=== PATIENT | male | born 1950 | race Caucasian/White ===

== ENCOUNTER 2016-10-26 19:47 | Emergency (ER) | payer OTHER ==
[2016-10-26 20:00] VITALS: RESP 16; TEMP 98.1
--- NOTE | 2016-10-26 21:43 | EDPHY ---
H & P Stated Complaint: RUQ, LUQ pain Time Seen by Provider: 10/26/16 21:35 HPI/ROS: CHIEF COMPLAINT: Abdominal pain. HISTORY OF PRESENT ILLNESS: The patient is a 66-year-old male who presents with abdominal pain that began Wednesday. The pain went away for the most part yesterday. However, today the pain returned and worsened sharply after he ate dinner. He admits constipation for the past few weeks but has no associated symptoms. No recent sickness, fever, chills, chest pain, shortness of breath, palpitations, vomiting, diarrhea, urinary complaints, headache, lightheadedness. He has no pancreatitis or gallbladder history. He does have a history of acid reflux but this feels dissimilar. REVIEW OF SYSTEMS: Aside from elements discussed in the HPI, a comprehensive 10-point review of systems was reviewed and is negative. PAST MEDICAL HISTORY: Hypertension. SOCIAL HISTORY: , nonsmoker, social alcohol use. VITAL SIGNS: Reviewed by me GENERAL: Well-developed, well-nourished, resting comfortably in no respiratory distress. HEENT: Atraumatic. Eyes: No icterus, no injection. Mouth: moist mucous membranes. No erythema or lesions. Neck: supple with no adenopathy. LUNGS: Clear to auscultation bilaterally, no wheezes, rhonchi or rales. CARDIAC: Regular rate and rhythm, no rubs, murmurs or gallops. ABDOMEN: Soft, nondistended, bowel sounds normal. Mild diffuse tenderness. BACK: No CVA tenderness. EXTREMITIES: No trauma. No edema. Range of motion is normal throughout. NEURO: Alert and oriented, grossly nonfocal. SKIN: Warm and dry, no rash. PSYCHIATRIC: Normal mentation, no agitation. Portions of this note were transcribed by a medical records field technician. I personally performed a history, physical exam, medical decision making, and confirmed accuracy of information the transcribed note. Source: Patient Exam Limitations: No limitations - Personal History Current Tetanus/Diphtheria Vaccine: Yes Current Tetanus Diphtheria and Acellular Pertussis (TDAP): Yes - Medical/Surgical History Hx Asthma: No Hx Chronic Respiratory Disease: No Hx Diabetes: No Hx Cardiac Disease: No Hx Renal Disease: No Hx Cirrhosis: No Hx Alcoholism: No Hx HIV/AIDS: No Hx Splenectomy or Spleen Trauma: No Other PMH: HTN, - Social History Smoking Status: Never smoked Constitutional: Initial Vital Signs Temperature (C) 36.7 C 10/26/16 19:57 Heart Rate 70 10/26/16 19:57 Respiratory Rate 16 10/26/16 19:57 Blood Pressure 158/93 H 10/26/16 19:57 O2 Sat (%) 94 10/26/16 19:57 O2 Delivery Mode Room Air Allergies/Adverse Reactions: No Known Allergies Allergy (Unverified 10/26/16 19:57) Home Medications: Medication Instructions Recorded Amoxicillin/Clavulanate Pot 875 mg PO BID #14 tab 10/26/16 [Augmentin 875 MG TAB (*)] Hydrocodone/APAP 5/325 [[place] 1 tab PO Q6H PRN #10 tab 10/26/16 5/325 (RX)] Lisinopril 10/26/16 Ondansetron Odt [Zofran Odt 4 mg 4 mg PO Q6 PRN #8 tab 10/26/16 (RX)] Medical Decision Making - Diagnostics Imaging Results: Impression: 1. Negative for cholelithiasis or secondary findings of cholecystitis. 2. Mild hepatic enlargement without focal hepatic abnormality. 3. See above report for additional findings. Results called and discussed with Deanna Martinez MD on 10/26/2016 at 23:05 Dictated By: Rubin Ramirez MD ED Course/Re-evaluation: 66-year-old male presents with upper left and right quadrant pain. These began Wednesday and returned today. They were worse after dinner. He has no associated symptoms. He has a normal exam. An IV was established and labs ordered. 1L IV saline administered. Lipase elevated at 432. Gallbladder ultrasound ordered. Ultrasound negative for gallstone disease. Discussed various causes for elevated lipase as well as abdominal pain in left lower quadrant and epigastric and right upper quadrant. Patient would prefer not to obtain CT scan for diverticulitis, creatinine elevated. Will dc with instruction regarding diverticulitis, pancreatitis, gastritis. Looks well; comfortable being discharged from ED. Differential Diagnosis: Abdominal pain differential considered include but not limited to diverticulitis , pancreatitis, gastritis, constipation, cholecystitis, irritable bowel disease. - Data Points Laboratory Results: Laboratory Results 10/26/16 20:55 10/26/16 20:55 Medications Given: Discontinued Medications Hydrocodone Bitart/Acetaminophen ([place] 5/325mg Prepack#6) 1 btl TAKEHOME EDNOW ONE Stop: 10/26/16 23:56 Last Admin: 10/26/16 23:55 Dose: 1 btl Sodium Chloride (Ns) 1,000 mls @ 0 mls/hr IV ONCE ONE PRN Reason: Wide Open Stop: 10/26/16 23:23 Last Admin: 10/26/16 23:22 Dose: 1,000 mls Ondansetron HCl (Zofran Odt 4 Mg Prepack#2) 1 btl TAKEHOME EDNOW ONE Stop: 10/26/16 23:56 Last Admin: 10/26/16 23:55 Dose: 1 btl Departure - Departure Disposition: Home, Routine, Self-Care Clinical Impression: Abdominal pain, Elevated lipase, Possible diverticulitis Condition: Fair Instructions: Hydrocodone/Acetaminophen (By mouth), Ondansetron (By mouth), Pancreatitis (ED), Diverticulitis (ED), Abdominal Pain (ED) Additional Instructions: 1. On your blood work, your lipase is slightly elevated. There is no signs of gallstones. This elevation in your lipase is may be the cause of your upper abdominal discomfort. For your abdominal pain and elevated lipase, I suggested you start with a bland diet and advance as tolerated. This means start with clear liquids such as water, Gatorade, juice, flat non- caffeinated soda. If you tolerate clear liquids, then you may add bland foods such as bananas, rice, or toast. If you do not have any worsening of your symptoms, you may begin to resume a regular diet. 2. You may take Zofran if needed for nausea and hydrocodone if needed for severe abdominal pain. 3. You been given a prescription for Augmentin. This will be treatment for diverticulitis. We did not CT scan your abdomen because of your elevated kidney functions. If you feel like you are developing worsening lower abdominal discomfort, please begin taking the Augmentin. You may return to the emergency department any time for re-evaluation and to consider a CT scan. 4. Please follow up with your primary care physician, Dr. Clark, at [facility] within the week. Referrals: JOVANA HANKS [Other] - As per Instructions Prescriptions: Amoxicillin/Clavulanate Pot [Augmentin 875 MG TAB (*)] 875 mg PO BID #14 tab Hydrocodone/APAP 5/325 [[place] 5/325 (RX)] 1 tab PO Q6H PRN #10 tab PRN Reason: Pain Ondansetron Odt [Zofran Odt 4 mg (RX)] 4 mg PO Q6 PRN #8 tab PRN Reason: Nausea Report Scribed for: Deanna Martinez Report Scribed by: Chico Amador Date of Report: 10/26/16 Time of Report: 22:12
[2016-10-26 21:47] LABS: % IMMATURE GRANULYOCYTES 0.2 % (0.0-1.1); ABSOLUTE IMMATURE GRANULOCYTES 0.01 10^3/uL (0.00-0.10); ADD DIFF? NO; ADD MORPH? NO; ADD SCAN? NO; ATYPICAL LYMPHOCYTE FLAG 0 (0-99); FRAGMENT RBC FLAG 0 (0-99); HEMATOCRIT 43.3 % (40.0-51.0); HEMOGLOBIN 14.4 g/dL (13.7-17.5); LEFT SHIFT FLG 0 (0-99); LIPEMIA HEMOLYSIS FLAG 80 (0-99); MEAN CELL HEMOGLOBIN 32.4 pg (27.9-34.1); MEAN CELL HEMOGLOBIN CONCENTR. 33.3 g/dL (32.4-36.7); MEAN CELL VOLUME 97.3 fL (81.5-99.8); MEAN PLATELET VOLUME 10.9 fL (8.7-11.7); PLATELET CLUMPS FLAG 0 (0-99); PLATELET COUNT 179 10^3/uL (150-400); RED BLOOD CELL COUNT 4.45 10^6/uL (4.40-6.38); RED CELL DISTRIBUTION WIDTH 12.5 % (11.5-15.2)
[2016-10-26 21:52] LABS: ALANINE AMINOTRANSFERASE 31 IU/L (21-72); ALKALINE PHOSPHATASE 60 IU/L (38-126); ANION GAP 11 mEq/L (8-16); ASPARTATE AMINOTRANSFERASE 35 IU/L (17-59); BILIRUBIN,TOTAL 0.5 mg/dL (0.1-1.4); BILIRUBIN-CONJUGATED 0.4 mg/dL (0.0-0.5); BILIRUBIN-UNCONJUGATED 0.1 mg/dL (0.0-1.1); CALCIUM 9.2 mg/dL (8.5-10.4); CARBON DIOXIDE 26 mEq/l (22-31); CHLORIDE 105 mEq/L (97-110); CREATININE 1.5 mg/dL (0.7-1.3); GLOMERULAR FILTRATION RATE 47; GLUCOSE 88 mg/dL (70-100); POTASSIUM 3.9 mEq/L (3.5-5.2); SODIUM 142 mEq/L (134-144); TOTAL PROTEIN 6.4 g/dL (6.3-8.2)
[2016-10-26] MEDS ORDERED: NS 1,000 ML IV ONE (23:22)
[2016-10-26] MEDS ORDERED: HYDROCOD/APAP 5/325 PREPACK#6 BTL TAKEHOME ONE ×2 (23:50→23:55)
[2016-10-26] MEDS ORDERED: ONDANSETRON 4MG PREPACK#2 BTL TAKEHOME ONE ×2 (23:51→23:55)
[2016-10-27 00:02] VITALS: BP 138/80; PULSE 75; O2SAT 96
== END 2016-10-26 23:58 | disposition home or self-care (01) ==
DX: R10.84 Generalized abdominal pain (principal); R74.8 Abnormal levels of other serum enzymes; I10 Essential (primary) hypertension

== ENCOUNTER 2016-12-04 14:03 | Inpatient (IN) | payer OTHER ==
[2016-12-04] MEDS ORDERED: NS 1,000 ML IV ONE ×2 (14:43→16:37)
--- NOTE | 2016-12-04 14:54 | EDPHY ---
H & P Stated Complaint: unexplained weight loss, headache nausea, increased weakness Time Seen by Provider: 12/04/16 14:17 HPI/ROS: CHIEF COMPLAINT: weight loss, fatigue HISTORY OF PRESENT ILLNESS: 66-year-old male presents emergency department complaining of increasing fatigue and weight loss over the last 5 weeks. Patient was seen 5 weeks ago in the emergency department for abdominal pain. He had several weeks of constipation prior to that visit. Patient reports over the last 5 weeks he has been able to control his abdominal pain with Zantac, aspirin and Tums and this is actually improving. Patient reports last week he tried to go on his normal mountain bike ride and he was too fatigued to continue , the next day he went on his normal run and had to stop and walk due to fatigue. His reports he is sleeping more than usual. Patient reports a decreased appetite, nausea. He states he has been seen at [facility] 3 times over the last 5 weeks for abnormal kidney function tests though last week he reports it was normal. Patient reports a 20 lb weight loss in the last 5 weeks. He denies diarrhea. Reports he is urinating a normal amount without difficulty. He denies chest pain or shortness of breath. REVIEW OF SYSTEMS: A comprehensive 10 point review of systems is otherwise negative aside from elements mentioned in the history of present illness. Source: Patient Exam Limitations: No limitations - Personal History Current Tetanus Diphtheria and Acellular Pertussis (TDAP): Yes - Medical/Surgical History Hx Asthma: No Hx Chronic Respiratory Disease: No Hx Diabetes: No Hx Cardiac Disease: No Hx Renal Disease: No Hx Cirrhosis: No Hx Alcoholism: No Hx HIV/AIDS: No Hx Splenectomy or Spleen Trauma: No Other PMH: HTN, - Social History Smoking Status: Never smoked Constitutional: Initial Vital Signs Temperature (C) 37 C 12/04/16 14:08 Heart Rate 99 12/04/16 14:08 Respiratory Rate 16 12/04/16 14:08 Blood Pressure 155/103 H 12/04/16 14:08 O2 Sat (%) 92 12/04/16 14:08 O2 Delivery Mode Room Air Allergies/Adverse Reactions: No Known Allergies Allergy (Unverified 10/26/16 19:57) Home Medications: Medication Instructions Recorded Lisinopril [Zestril 20 mg (*)] 20 mg PO DAILY 10/26/16 Acetaminophen/ASA/Caffeine 1 each PO Q4-6PRN PRN 12/04/16 [Excedrin Tablet (*)] Calcium Carbonate [Tums 500MG (*)] 500 - 1,000 mg PO QID PRN 12/04/16 Herbals/Supplements -Info Only 1 ea PO DAILY 12/04/16 Ranitidine HCl [Zantac 75] 75 mg PO QID PRN 12/04/16 Medical Decision Making - Diagnostics EKG Interpretation: EKG shows normal sinus rhythm, rate 77, normal axis, good R-wave progression, no ST or T-wave abnormality Imaging Results: Imaging Impressions Abdomen/Pelvis CT 12/04/16 15:30 Impression: 1. No intra-abdominal mass, lymphadenopathy or localized inflammatory process. 2. Normal noncontrast pancreas. No mass or evidence of acute or chronic pancreatitis. 3. Minimal sigmoid diverticulosis. No diverticulitis. 4. Bilateral nephrolithiasis. No hydronephrosis or ureteral calculi. Findings discussed with Emergency Department Bijal Garg NP on December 04, 2016 at 1622 hours. Attention: This CT examination is specifically designed to evaluate patients who are clinically suspected of having acute obstructive uropathy. This examination does not use radiographic contrast, and as such, provides only a limited evaluation of the abdomen, pelvis and retroperitoneum. If there is further clinical suspicion for pathological conditions other than obstructive uropathy, a complete CT evaluation of the abdomen and pelvis utilizing intravenous, oral, and rectal contrast should be considered. Chest CT 12/04/16 15:30 Impression: 1. No evidence of malignancy. 2. Clear lungs with minimal airways disease. No underlying emphysema or pulmonary fibrosis. 3. Mild old T6 compression fracture. 4. Three-vessel calcified coronary plaque. Findings discussed with Emergency Department Bijal Garg NP on December 04, 2016 at 1622 hours. ED Course/Re-evaluation: IV established, CBC, chemistry panel, lipase, LFTs and urinalysis ordered. I- STAT shows an elevated creatinine at 4.4, normal potassium. CT abdomen pelvis with IV contrast has been canceled. Patient urinated clear yellow urine, 100 mL , postvoid residual bladder scan showed 150 mL. Patient with an unremarkable CBC, troponin and LFTs are unremarkable, calcium is 14.6. Patient has been taking 4 tums 3 to 4 times a day. 2nd L of normal saline has been hung. CT chest abdomen pelvis is unremarkable. Patient with a normal EKG. Patient will be admitted to Hospital Medicine for further workup and treatment for his elevated creatinine. Patient is aware and comfortable with this plan. is at bedside. I have spoken with Dr. Rachael Miner. - Data Points Laboratory Results: Laboratory Results 12/04/16 14:46 12/04/16 14:46 12/04/16 12/04/16 12/04/16 14:52 14:47 14:46 WBC RBC Hgb POC Hgb 17.3 gm/dL gm/dL (13.7-17.5) Hct POC Hct 51 % % (40-51) MCV MCH MCHC RDW Plt Count MPV Neut % (Auto) Lymph % (Auto) [place] % (Auto) Eos % (Auto) Baso % (Auto) Nucleat RBC Rel Count Absolute Neuts (auto) Absolute Lymphs (auto) Absolute Monos (auto) Absolute Eos (auto) Absolute Basos (auto) Absolute Nucleated RBC Immature Gran % Immature Gran # POC Sodium 141 mEq/L mEq/L (134-144) Sodium POC Potassium 3.6 mEq/L mEq/L (3.3-5.0) Potassium POC Chloride 98 mEq/L mEq/L (97-110) Chloride Carbon Dioxide Anion Gap POC BUN 34 mg/dL H mg/dL (7-23) BUN Creatinine POC Creatinine 4.4 mg/dL H mg/dL (0.7-1.3) Estimated GFR Glucose POC Glucose 124 mg/dL H mg/dL (70-100) Calcium Phosphorus Total Bilirubin Conjugated Bilirubin Unconjugated Bilirubin AST ALT Alkaline Phosphatase Troponin I Total Protein Albumin Lipase PTH Intact Pending Specimen Hemolysis Urine Color YELLOW Urine Appearance MODERATELY TURBID Urine pH 7.0 (5.0-7.5) Ur Specific [place] 1.009 (1.002-1.030) Urine Protein NEGATIVE (NEGATIVE) Urine Ketones NEGATIVE (NEGATIVE) Urine Blood NEGATIVE (NEGATIVE) Urine Nitrate NEGATIVE (NEGATIVE) Urine Bilirubin NEGATIVE (NEGATIVE) Urine Urobilinogen NEGATIVE EU EU (0.2-1.0) Ur Leukocyte Esterase NEGATIVE (NEGATIVE) Urine Glucose NEGATIVE (NEGATIVE) 12/04/16 12/04/16 14:46 14:46 WBC 8.17 10^3/uL 10^3/uL (3.80-9.50) RBC 5.37 10^6/uL 10^6/uL (4.40-6.38) Hgb 17.5 g/dL g/dL (13.7-17.5) POC Hgb Hct 49.8 % % (40.0-51.0) POC Hct MCV 92.7 fL fL (81.5-99.8) MCH 32.6 pg pg (27.9-34.1) MCHC 35.1 g/dL g/dL (32.4-36.7) RDW 12.2 % % (11.5-15.2) Plt Count 197 10^3/uL 10^3/uL (150-400) MPV 10.3 fL fL (8.7-11.7) Neut % (Auto) 76.1 % H % (39.3-74.2) Lymph % (Auto) 13.7 % L % (15.0-45.0) Morrill % (Auto) 8.1 % % (4.5-13.0) Eos % (Auto) 1.0 % % (0.6-7.6) Baso % (Auto) 0.7 % % (0.3-1.7) Nucleat RBC Rel Count 0.0 % % (0.0-0.2) Absolute Neuts (auto) 6.22 10^3/uL 10^3/uL (1.70-6.50) Absolute Lymphs (auto) 1.12 10^3/uL 10^3/uL (1.00-3.00) Absolute Monos (auto) 0.66 10^3/uL 10^3/uL (0.30-0.80) Absolute Eos (auto) 0.08 10^3/uL 10^3/uL (0.03-0.40) Absolute Basos (auto) 0.06 10^3/uL 10^3/uL (0.02-0.10) Absolute Nucleated RBC 0.00 10^3/uL 10^3/uL (0-0.01) Immature Gran % 0.4 % % (0.0-1.1) Immature Gran # 0.03 10^3/uL 10^3/uL (0.00-0.10) POC Sodium Sodium 140 mEq/L mEq/L (134-144) POC Potassium Potassium 4.0 mEq/L mEq/L (3.5-5.2) POC Chloride Chloride 97 mEq/L mEq/L (97-110) Carbon Dioxide 29 mEq/l mEq/l (22-31) Anion Gap 14 mEq/L mEq/L (8-16) POC BUN BUN 36 mg/dL H mg/dL (7-23) Creatinine 4.5 mg/dL H mg/dL (0.7-1.3) POC Creatinine Estimated GFR 13 Glucose 119 mg/dL H mg/dL (70-100) POC Glucose Calcium 14.8 mg/dL H* mg/dL (8.5-10.4) Phosphorus 4.1 mg/dL mg/dL (2.5-4.5) Total Bilirubin 0.8 mg/dL mg/dL (0.1-1.4) Conjugated Bilirubin 0.4 mg/dL mg/dL (0.0-0.5) Unconjugated Bilirubin 0.4 mg/dL mg/dL (0.0-1.1) AST 25 IU/L IU/L (17-59) ALT 20 IU/L L IU/L (21-72) Alkaline Phosphatase 69 IU/L IU/L (38-126) Troponin I < 0.012 ng/mL ng/mL (0-0.034) Total Protein 7.5 g/dL g/dL (6.3-8.2) Albumin 4.7 g/dL g/dL (3.5-5.0) Lipase 391.0 IU/L H IU/L (23-300) PTH Intact Specimen Hemolysis Urine Color Urine Appearance Urine pH Ur Specific [place] Urine Protein Urine Ketones Urine Blood Urine Nitrate Urine Bilirubin Urine Urobilinogen Ur Leukocyte Esterase Urine Glucose Medications Given: Discontinued Medications Sodium Chloride (Ns) 1,000 mls @ 0 mls/hr IV ONCE ONE PRN Reason: Wide Open Stop: 12/04/16 14:44 Last Admin: 12/04/16 15:07 Dose: 1,000 mls Sodium Chloride (Ns) 1,000 mls @ 0 mls/hr IV ONCE ONE PRN Reason: Wide Open Stop: 12/04/16 16:38 Last Admin: 12/04/16 16:48 Dose: 1,000 mls Point of Care Test Results: 12/04/16 14:47 POC Sodium 141 POC Potassium 3.6 POC Chloride 98 POC BUN 34 H POC Creatinine 4.4 H POC Glucose 124 H Departure - Departure Disposition: [facility] Clinical Impression: Elevated serum creatinine Fatigue Qualifiers: Fatigue type: unspecified Qualified Code(s): R53.83 - Other fatigue Condition: Fair
[2016-12-04 15:01] LABS: HEMATOCRIT 49.8 % (40.0-51.0); HEMOGLOBIN 17.5 g/dL (13.7-17.5); MEAN CELL HEMOGLOBIN 32.6 pg (27.9-34.1); MEAN CELL HEMOGLOBIN CONCENTR. 35.1 g/dL (32.4-36.7); MEAN CELL VOLUME 92.7 fL (81.5-99.8); RED BLOOD CELL COUNT 5.37 10^6/uL (4.40-6.38); RED CELL DISTRIBUTION WIDTH 12.2 % (11.5-15.2)
[2016-12-04 15:02] LABS: % IMMATURE GRANULYOCYTES 0.4 % (0.0-1.1); ABSOLUTE IMMATURE GRANULOCYTES 0.03 10^3/uL (0.00-0.10); ADD DIFF? NO; ADD MORPH? NO; ADD SCAN? NO; ATYPICAL LYMPHOCYTE FLAG 0 (0-99); FRAGMENT RBC FLAG 0 (0-99); LEFT SHIFT FLG 0 (0-99); LIPEMIA HEMOLYSIS FLAG 90 (0-99); MEAN PLATELET VOLUME 10.3 fL (8.7-11.7); PLATELET CLUMPS FLAG 20 (0-99); PLATELET COUNT 197 10^3/uL (150-400)
[2016-12-04 15:21] LABS: COLOR YELLOW; LEUKOCYTE ESTERASE,URINE NEGATIVE (NEGATIVE); NITRITE,URINE NEGATIVE (NEGATIVE)
--- NOTE | 2016-12-04 15:26 | CPEKG ---
Heart Rate: 77 RR Interval: 779 P-R Interval: 172 QRSD Interval: 78 QT Interval: 368 QTC Interval: 417 P [place]: 58 QRS [place]: 12 T Wave [place]: 46 EKG Severity - NORMAL ECG - EKG Impression: SINUS RHYTHM Electronically Signed By: Nelson Perez 05-Dec-2016 07:35:04
[2016-12-04 15:29] LABS: ALANINE AMINOTRANSFERASE 20 IU/L (21-72); ALBUMIN 4.7 g/dL (3.5-5.0); ALKALINE PHOSPHATASE 69 IU/L (38-126); ANION GAP 14 mEq/L (8-16); ASPARTATE AMINOTRANSFERASE 25 IU/L (17-59); BILIRUBIN,TOTAL 0.8 mg/dL (0.1-1.4); BILIRUBIN-CONJUGATED 0.4 mg/dL (0.0-0.5); BILIRUBIN-UNCONJUGATED 0.4 mg/dL (0.0-1.1); CARBON DIOXIDE 29 mEq/l (22-31); CHLORIDE 97 mEq/L (97-110); CREATININE 4.5 mg/dL (0.7-1.3); GLOMERULAR FILTRATION RATE 13; GLUCOSE 119 mg/dL (70-100); SODIUM 140 mEq/L (134-144); TOTAL PROTEIN 7.5 g/dL (6.3-8.2)
[2016-12-04 15:39] LABS: TROPONIN I < 0.012 ng/mL (0-0.034)
[2016-12-04] MEDS ORDERED: ONDANSETRON 4 MG/2 ML VIAL IVP PRN (18:00)
[2016-12-04] MEDS ORDERED: ONDANSETRON DISINTEGRATING 4 MG TAB PO PRN (18:00)
[2016-12-04] MEDS ORDERED: ACETAMINOPHEN 325 MG TAB PO PRN (18:00)
[2016-12-04 18:11] LABS: VITAMIN D 25-HYDROXY TOTAL 40.8 ng/mL (30-100)
[2016-12-04 21:35] LABS: CALCIUM 14.8 mg/dL (8.5-10.4)
[2016-12-04] MEDS: amLODIPine BESYLATE 5 MG TAB PO SCH (22:11)
--- NOTE | 2016-12-04 22:23 | GHP ---
[f rep st] HISTORY AND PHYSICAL DATE OF ADMISSION: 12/04/2016 CHIEF COMPLAINT: Weakness, nausea, weight loss. HISTORY OF PRESENT ILLNESS: This is a 66-year-old male, who really does not have a lot in the way o f past chronic medical problems. A couple months ago he was diagnosed with acute pancreatitis and h ad epigastric pain at that time. Also at that time, his kidney function was off. He followed up [facility] about a couple weeks ago. He had a normal creatinine. Over the last several wee ks, however, he has been complaining of fatigue as well as about a 12-pound weight loss. He has had some nausea, decreased p.o. intake, some vague abdominal discomfort as well. No bone pain. No con stipation. He does complain of headache. REVIEW OF SYSTEMS: A 10-point review of systems obtained. Other than stated above is negative. PAST MEDICAL HISTORY: Hypertension. MEDICATIONS: Lisinopril, ranitidine. He also takes 4 Tums 4 times a day. SOCIAL HISTORY: No smoking or alcohol. 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 FAMILY HISTORY: No multiple myeloma. PHYSICAL EXAM: VITAL SIGNS: Afebrile. Blood pressure 155/103, heart rate 99, oxygen saturation is 92% on room air. GENERAL: The patient is well developed, in no apparent distress. HEENT: Nonict nicholas sclerae. Extraocular muscles are intact. NECK: Supple. No thyromegaly. LUNGS: Good effort . Clear to auscultation bilaterally. CARDIOVASCULAR: Regular rate and rhythm. No murmurs or gall ops. ABDOMEN: Positive bowel sounds. Soft, nontender, nondistended. No hepatosplenomegaly. EXTR EMITIES: No clubbing, cyanosis, or edema. SKIN: Without rash, dry, intact. NEUROLOGIC: Alert an d oriented x3. Moving all 4 extremities equally. PSYCH: Normal mood and affect. LABS: CBC is normal. Chemistry does show a creatinine of 4.5 and a calcium of 14.8. Liver functio n tests are normal. Troponin is negative. Lipase slightly elevated at 391. PTH is low at 7.5. UA is negative with no proteinuria. CT scan of the chest, abdomen, and pelvis does not show any bony abnormalities nor evidence of malig dianna. It does show calcified coronary plaques. There is also bilateral nephrolithiasis. ASSESSMENT: This is a 66-year-old male presenting with hypercalcemia, most likely related to Rebecca barnes. PLAN: 1. Hypercalcemia. His low PTH is consistent with either ingestion or malignancy. Thankfully, he d oes not have any obvious malignancies in his CT scan of his chest, abdomen, and pelvis. There are n o bony abnormalities or destruction to suggest metastatic disease or myeloma. He is taking signific ant amounts of calcium and states that he increased his calcium intake right about the time that he started having symptoms. He is actually taking calcium because of cramping that he gets with excess daren exercise. At this point, I am going to hydrate him and follow his calcium tomorrow. I have sen t off an SPEP, UPEP to rule out myeloma, although I think this is probably less likely of an etiolog y. His PSA is also normal. 2. Acute renal failure. It is reassuring that several weeks ago his creatinine was normal. He ortega s not have any anemia. I think this is probably acute due to dehydration from hypercalcemia and pos sibly RONALD inhibitor. I am going to hold the RONALD inhibitor, give IV fluids, continue to monitor. Hi s urine is also completely bland. 3. Hypertension. His blood pressure is a little on the high side. Will add a little bit of Norvas c since we are stopping the RONALD inhibitor. /[id number]/MODL
[2016-12-05] MEDS: NS 1,000 ML IV SCH ×4 (01:02→21:31)
[2016-12-05 04:33] LABS: IONIZED CALCIUM 1.48 MMOL/L (1.12-1.30)
[2016-12-05 04:51] LABS: ANION GAP 10 mEq/L (8-16); CALCIUM 11.5 mg/dL (8.5-10.4); CARBON DIOXIDE 27 mEq/l (22-31); CHLORIDE 107 mEq/L (97-110); CREATININE 4.3 mg/dL (0.7-1.3); GLOMERULAR FILTRATION RATE 14; GLUCOSE 89 mg/dL (70-100); POTASSIUM 4.1 mEq/L (3.5-5.2); SODIUM 144 mEq/L (134-144)
[2016-12-05] MEDS: amLODIPine BESYLATE 5 MG TAB PO SCH (08:24)
[2016-12-05] MEDS ORDERED: FUROSEMIDE 20 MG/2 ML VIAL IVP ONE (11:46)
--- NOTE | 2016-12-05 11:52 | HOSPPROG ---
Hospitalist Progress Note Assessment/Plan: 66 y/o male new to my care 12/05 presenting with #hypercalcemia (suspect iatrogenic from calcium ingestion) #NAIDA secondary to above #subacute abdominal pain in the setting of recently diagnosed pancreatitis of unclear etiology with significant weight loss Plan: -cont IV normal saline -lasix 20mg ivp x1 -agree with holding jesus -I discussed the case with Dr. Padron who will see the patient later today in consultation -SPEP pending -GI consult to eval need for EGD to eval for ulcer as a cause of his abd pain/ weight loss/pancreatitis dispo continue inpatient care Subjective: overall feeling better today with improving appetite. good urine output. endorses a 4 week Objective: Vital Signs Temp Pulse Resp BP Pulse Ox 36.4 C 55 L 16 145/92 H 96 12/05/16 08:03 12/05/16 08:03 12/05/16 08:03 12/05/16 08:03 12/05/16 08:03 Laboratory Results 12/05/16 04:24 12/04/16 12/05/16 12/06/16 05:59 05:59 05:59 Intake Total 3950 Output Total 1475 Balance 2475 - Physical Exam Constitutional: no apparent distress, appears nourished, not in pain Cardiovascular: regular rate and rhythym, no murmur, rub, or gallop, No JVD, No edema Respiratory: no respiratory distress, no rales or rhonchi, clear to auscultation Gastrointestinal: normoactive bowel sounds, soft, non-tender abdomen, no palpable masses, No guarding, No rebound Genitourinary: no bladder fullness, no bladder tenderness, no renal bruits Neurologic: AAOx3, sensation intact bilaterally Psychiatric: interacting appropriately, not anxious, not encephalopathic, thought process linear ICD10 Worksheet Patient Problems: Problems Problem Status Onset Abdominal pain Acute Elevated lipase Acute Elevated serum creatinine Acute Fatigue Acute
--- NOTE | 2016-12-05 14:15 | GCON ---
[f rep st] CONSULTATION GASTROENTEROLOGY CONSULTATION DATE OF CONSULTATION: 12/05/2016 CHIEF COMPLAINT: Abdominal pain. HISTORY OF PRESENT ILLNESS: I am asked to see this patient in consultation by Dr. Chi for a chief complaint of abdominal pain. As you know, he is a pleasant 66-year-old, who was admitted about 5 w eeks ago with pancreatitis. Ultrasound was normal without gallstones and he responded to conservati ve measures. The cause of his pancreatitis was not clear. He has been having issues with epigastri c pain and has been using high doses of TUMS. He has been feeling progressively weak with nausea an d weight loss. Came to the emergency room. Found to have acute renal failure with a high calcium a t 14.8. This is thought to be from his excessive TUMS use. The patient has never had a known histo ry of peptic ulcer disease. He does take Excedrin with aspirin at least once a day, sometimes sever al times a day. He has had no vomiting, no hematemesis, no melena or blood in his stools. He has b een somewhat constipated recently since his pancreatitis he does get some GERD symptoms maybe once a day, but no dysphagia. He was referred for a colonoscopy last year, but did not follow through. [facility] has never had a screening colonoscopy. No known family history for colon cancer or colon polyps. CT scan this admission showed no pancreatic lesions, no active pancreatitis. ALLERGIES: No known allergies. MEDICINES: Medicines on admission were herbal supplements, high-dose TUMS, ranitidine, Excedrin wit h aspirin, and lisinopril. PAST MEDICAL HISTORY: Pancreatitis in October 2016 of unclear cause, diverticulosis on CT scan, an el evated calcium this admission, acute renal failure this admission. FAMILY HISTORY: Notable for ulcers in his father but he denies a family history of colon cancer or colon polyps. SOCIAL HISTORY: Denies alcohol use. REVIEW OF SYSTEMS: A review of 10 systems: I have performed a complete review of systems which is negative, except for pertinent positives and negatives noted in the HPI. PHYSICAL EXAM: VITAL SIGNS: Afebrile at 36.3, blood pressure 173/98, pulse 64. CONSTITUTIONAL: A lert and oriented. HEENT: Eyes: No scleral icterus. Mouth: No oral lesions. CARDIAC: Regular rate and rhythm. CHEST: Clear to auscultation bilaterally. ABDOMEN: Slightly obese, soft, nonten ulises, except for deep palpation in the periumbilical area, but no rebound. NEUROLOGIC: Nonfocal. S KIN: No obvious rashes. LABORATORY DATA: BUN and creatinine are 30 and 4.5, which is new for him. Calcium is elevated at 1 4.8. LFTs are normal. White count is 8 with hematocrit of 49.8, platelets 197. CT scan of the chest, abdomen and pelvis does not show any bony abnormalities. No evidence of malig dianna. It does show calcified coronary plaques. Pancreas shows no pancreatitis or lesions. ASSESSMENT: 1. Patient with abdominal pain in the epigastric/periumbilical area. The patient has history of pa ncreatitis about 5 weeks ago which has clinically resolved and no evidence of active pancreatitis on CT scan. No mass lesions in the pancreas seen. However, the CT was done noncontrast due to his re nal failure. 2. High calcium. This is presumably from his TUMS intake and patient is due for surveillance colon oscopy. Concern for possible peptic ulcer disease as a cause of epigastric pain could have been also a cause for his recent pancreatitis. I think it is reasonable to do an upper endoscopy. I discussed this with the patient during consultation. I also recommended that he have a colonoscopy, as he has santiagoe r had a screening exam, and patient agrees to proceed with both. However, he does not feel up to do ing the prep today and would like to wait at least today and may consider proceeding with prep tomor row. PLAN: Recommend an upper and lower endoscopy for evaluation. However, due to his renal failure and clinical status, will wait until he is overall improved, but could do this admission or have him co me back as an outpatient. We will re-discuss with the patient tomorrow. Thanks for this consult. /[id number]/MODL
[2016-12-06] MEDS: NS 1,000 ML IV SCH ×2 (02:22→12:51)
[2016-12-06 05:44] LABS: ANION GAP 7 mEq/L (8-16); CALCIUM 9.5 mg/dL (8.5-10.4); CARBON DIOXIDE 22 mEq/l (22-31); CHLORIDE 111 mEq/L (97-110); CREATININE 3.2 mg/dL (0.7-1.3); GLOMERULAR FILTRATION RATE 19; GLUCOSE 85 mg/dL (70-100); SODIUM 140 mEq/L (134-144)
[2016-12-06] MEDS: amLODIPine BESYLATE 5 MG TAB PO SCH (09:05)
[2016-12-06] MEDS: ACETAMINOPHEN/ASA/CAFFEINE 1 EACH TAB PO PRN ×2 (09:34→13:29)
--- NOTE | 2016-12-06 10:28 | HOSPPROG ---
Hospitalist Progress Note Assessment/Plan: 66 y/o male new to my care 12/05 presenting with #hypercalcemia (suspect iatrogenic from calcium ingestion) improving #NAIDA secondary to above (improving) #subacute abdominal pain in the setting of recently diagnosed pancreatitis of unclear etiology with significant weight loss Plan: -cont IV normal saline -agree with holding jesus -Dr. Hudson see later today -SPEP pending/daily labs -GI consult to eval need for EGD was reviewed and appreciated dispo continue inpatient care Subjective: overall feeling better today. good urine output. improved abd pain , but only eating clears Objective: Vital Signs Temp Pulse Resp BP Pulse Ox 36.8 C 64 16 153/88 H 94 12/06/16 08:00 12/06/16 08:00 12/06/16 08:00 12/06/16 08:00 12/06/16 08:00 Laboratory Results 12/06/16 04:59 12/05/16 12/06/16 12/07/16 05:59 05:59 05:59 Intake Total 3950 4460 Output Total 1475 5825 1100 Balance 2115 -0895 -1100 - Physical Exam Constitutional: no apparent distress, appears nourished, not in pain Cardiovascular: regular rate and rhythym, no murmur, rub, or gallop Respiratory: no respiratory distress, no rales or rhonchi, clear to auscultation Gastrointestinal: normoactive bowel sounds, soft, non-tender abdomen, no palpable masses, No guarding, No rebound Genitourinary: no bladder fullness, no bladder tenderness, no renal bruits Neurologic: AAOx3, sensation intact bilaterally ICD10 Worksheet Patient Problems: Problems Problem Status Onset Abdominal pain Acute Elevated lipase Acute Elevated serum creatinine Acute Fatigue Acute
--- NOTE | 2016-12-06 10:41 | SOAPPROG ---
SOAP Progress Note Assessment/Plan: Assessment: Epi gastric pain H/o pancreatitis Acute renal failure improving Plan: Plan for EGD and colon tomorrow 12/06/16 10:40 Subjective: CC epi pain Pain some what better today Objective: Vital Signs Temp Pulse Resp BP Pulse Ox 36.8 C 64 16 153/88 H 94 12/06/16 08:00 12/06/16 08:00 12/06/16 08:00 12/06/16 08:00 12/06/16 08:00 Laboratory Results 12/06/16 04:59 12/05/16 12/06/16 12/07/16 05:59 05:59 05:59 Intake Total 3950 4460 Output Total 3318 3844 6290 Balance 3135 -9358 -2161 Physical Exam - Physical Exam General Appearance: alert, no apparent distress Cardiac/Chest: regular rate, rhythm Abdomen: normal bowel sounds, non-tender, soft ICD10 Worksheet Patient Problems: Problems Problem Status Onset Elevated serum creatinine Acute Fatigue Acute Abdominal pain Acute Elevated lipase Acute
[2016-12-06] MEDS ORDERED: GOLYTELY 4000 ML BTL PO ONE ×2 (10:42→23:15)
--- NOTE | 2016-12-06 13:48 | SOAPPROG ---
MAXIM Progress Note Assessment/Plan: Assessment:Plan: ARF-reportedly normal baseline at [email or web address] -creatinine 1.5 in October when he was in with pancreatitis -admit level 4.5 in face of severe hypercalcemia -the hypercalcemia results in ARF due to dehydration and vasoconstriction -now resolving with IVF and correction of calcium -now that calcium levels are within the normal range, the component caused by vasoconstriction is lifting -would stop IVF to see if calcium and creatinine continue to improve on just oral intake -CT scan with non-obstructing stones -no hematuria or proteinuria -no obvious other renal insults to explain his ARF -serum creatinine and relationship to eGFR reviewed in detail with patient and spouse -will need outpatient followup to make sure he has complete recovery Hypercalcemia-classic symptoms and complications -level was normal in October, but since then he has increased his use of calcium carbonate -consistent with milk alkali syndrome, 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 -his bicarbonate was 29 on admission -need to exclude other causes of hypercalcemia as you are doing -patient at increased risk due to age and use of RONALD-i -process typically requires some source of alkali and/or increased vitamin D to cause this level of increase -denies excessive milk ingestion -no source of additional vitamin D -had been taking excessive doses of calcium carbonate 1000mg (TUMs Ultra) 4- 5 tabs Tid -he combined this with significant diet cola intake, which likely provided the phosphate load to prevent the typical hypophosphatemia -PTH appropriately low -25OH Vit D level okay -would check TSH -await paraprotein studies, especially given evidence of T6 vertebral compression fracture incidentally found on CT abd/chest GI-GERD causing upset -using ranitidine and calcium carbonate -advised to stop TUMs -will try PPI -discussed role of H. pylori in chronic GERD patients -check Ag -consider eval as outpt by GI Cardiovascular calcifications-consider further evaluation as outpatient to assess risk and to address with lifestyle and pharmacologic interventions Nephrolithiasis-likely CaPhos stones due to the above 12/06/16 14:30 Objective: Vital Signs Temp Pulse Resp BP Pulse Ox 36.3 C 61 18 165/94 H 95 12/06/16 13:22 12/06/16 13:22 12/06/16 13:22 12/06/16 13:22 12/06/16 13:22 Laboratory Results 12/06/16 04:59 12/05/16 12/06/16 12/07/16 05:59 05:59 05:59 Intake Total 7851 4451 Output Total 6963 0040 9839 Balance 9380 -7849 -8600 ICD10 Worksheet Patient Problems: Problems Problem Status Onset Elevated serum creatinine Acute Fatigue Acute Abdominal pain Acute Elevated lipase Acute
[2016-12-06 14:09] LABS: MAGNESIUM 1.8 mg/dL (1.6-2.3)
[2016-12-06] MEDS: PANTOPRAZOLE SODIUM 40 MG TAB PO SCH (14:12)
--- NOTE | 2016-12-06 15:08 | GCON ---
[f rep st] CONSULTATION NEPHROLOGY CONSULTATION DATE OF CONSULTATION: 12/06/2016 REASON FOR CONSULTATION: Acute renal failure with hypercalcemia. ASSESSMENT: 1. 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 2. Acute renal failure due to the dehydration related to his hypercalcemia along with vasoconstrict ion. 3. Chronic gastrointestinal symptoms resulting in chronic Tums and Zantac use. 4. Nephrolithiasis, likely due to his hypercalcemia. 5. Coronary artery calcifications. 6. History of basal cell carcinoma, left neck. 7. History of hypertension. 8. History of pancreatitis in October 2016 with a creatinine of 1.5 at that time, with subsequent out patient values at [facility] that are reportedly normal. 9. Incidental finding of a T6 compression fracture on the CT of the chest that he received during a dmission today. RECOMMENDATION: 1. Continue workup for other causes of hypercalcemia. 2. Await paraprotein evaluation. 3. Check TSH. 4. Discontinue IV fluid to see if he can continue his recovery from his acute renal failure and radha ntain normocalcemia without this assistance. 5. Check H pylori. 6. Check magnesium levels as these are often low in hypercalcemia. 7. Discontinue his outpatient ranitidine and initiate PPI. 8. Check H pylori antigen. 9. Consider outpatient evaluation by GI to see if he has evidence for N-[id number]-[id number] GI symptoms. 10. Consider evaluation as an outpatient for his cardiovascular calcifications to assess his cardio vascular risk and address lifestyle and pharmacologic intervention that may modify such risk. 11. Follow the nephrolithiasis to see if this becomes symptomatic and maintain adequate hydration a s an outpatient. HISTORY: The patient is a very pleasant 66-year-old male I have been asked to consult on by Dr. Nazario garcia for his acute renal failure and hypercalcemia. He evidently came in on the 2nd with a creatinine that was elevated at 4.5. He was found to have a calcium of 14.8. He presented with classic sympt oms of hypercalcemia with nausea, malaise, constipation, weakness. He also describes a 20-pound chandni ght loss. He has been initially evaluated with a parathyroid hormone that was appropriately suppressed at a le larry of 7.5. His vitamin D level was not elevated with a 25-hydroxyvitamin D level of 40. He had a PSA screen that was normal at 1.3. He underwent CT scan of chest, abdomen, pelvis. The scans revealed 3-vessel calcification of his co ronary arteries, a T6 compression fracture, bilateral nephrolithiasis, with incidental findings of m inimal sigmoid diverticulosis. The patient had a mildly-increased lipase on admission. CT scan of his abdomen did not show any daria dence of pancreatic inflammation. PAST MEDICAL HISTORY: Pancreatitis in October of 2016. At the time his creatinine was 1.5. Per H an d P by Dr. Rachael Miner, he evidently had labs recently at [facility] that showed normal renal fu nction. The patient has hypertension. He also describes history of basal cell carcinoma at the bas e of his left neck that has been surgically removed. He has had no other types of skin cancer per h is knowledge. Currently, evaluation of paraproteinemia has not been completed. SPEP and free light chains are pen ding. He has not had thyroid studies done. Since his admission, his calcium came down nicely but his creatinine remained elevated. With correc tion of his hypercalcemia, his creatinine has come down from 4.3 yesterday to a level of 3.2 today. Calcium levels have come down to 9.5 with the administration of ongoing IV fluid. On admission, patient's bicarb level was 29. He did not have any evidence of hypophosphatemia with a phosphorus level of 4.1. Magnesium levels have not yet been checked at this time. The patient describes taking 4-5 Tums Ultra 1000 mg 3 times daily. He was also drinking Diet Coke 4 -5 times per day as well. He denies any milk ingestion. He denies any ingestion of vitamin D supplements. He denies any dehy drating illness. He has been on chronic antihypertensive therapy with lisinopril. He had been using the Toms due to GI symptoms. He increased the use of Tums since his admission in October with the pancreatitis. He describes symptoms for approximately the last 5 weeks. He has been eating, but his dietary intake has been decreased. He tries to the eat a healthy diet. He has bee n eating soups and vegetables. He has described the Diet Coke and Tums intake as described above. PAST MEDICAL HISTORY: Hypertension, pancreatitis, basal cell carcinoma of the neck. SURGICAL HISTORY: Removal of basal cell carcinoma. OUTPATIENT MEDICATIONS: Lisinopril 20 mg daily, herbal supplement, calcium carbonate 1000 mg taking 4-5 tabs 3 times daily, ranitidine 75 mg 4 times daily, Excedrin as needed. ALLERGIES: None. FAMILY AND SOCIAL HISTORY: Noncontributory. 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 PHYSICAL EXAMINATION: VITAL SIGNS: Temp 36.8, pulse 64, respirations 16, blood pressure 153/88, we ight 77 kg. Ins and outs were 4460 in and 5825 out. APPEARANCE: No apparent distress. SKIN: Unr emarkable. He has an old scar at the base of his left neck near his sternum. NEUROLOGICALLY: Marlon sly intact. HEART: Regular with no extra heart sounds. LUNGS: Clear. ABDOMEN: Somewhat firm bu t otherwise benign. Positive bowel sounds. Nontender. No obvious rebound or guarding. EXTREMITIE S: Free of edema. Pulses are intact with 3 out of 4 pulses in the carotids with normal upstrokes. Radial pulses are symmetrical at 4 out of 4. He has normal and symmetric pulses in his posterior t ibialis and his dorsalis pedis. LABS: As previously described with a creatinine of 3.2, calcium 9.5. PTH of 7.5. 25-hydroxyvitami n D of 40. PSA of 1.3. ASSESSMENT: Hypercalcemia. He has classic symptoms of hypercalcemia. We need to exclude other cau ses of hypercalcemia. This has been effectively done, but I would await the evaluation of the parap roteinemia-related issues and also check a thyroid function test. His parathyroid is appropriately suppressed. He has no evidence of malignancy on CT scan of chest, abdomen, and pelvis. PSA is normal. He does have bony pathology with a T6 compression fracture, bu t this is nondiagnostic of a specific pathology. I would stop his IV fluid now to see if he can maintain his improvement without this help. I want t o make sure he does not have risk of rebounding either with his hypercalcemia or his acute renal aki lure once fluid is stopped. He has chronic GI symptoms consistent with gastroesophageal reflux disease. He could have gastritis or other GI ulceration. Because of these symptoms, he was using Tums and Zantac. I would consider starting a PPI. We discussed the role of H pylori in chronic GI disease. The patient wishes to be evaluated for this. An H pylori antigen was sent. He probably should get a GI followup as an outp atient to see if he has GI pathology causing these symptoms. He has asymptomatic nephrolithiasis. This is likely related to his hypercalcemia. I suspect these are calcium phosphate stones. He should stay off the calcium. We will see if he develops any sympt oms related to this process. He has incidental finding of coronary calcifications. He may want to get guidance regarding whether he is at risk for an acute cardiac event. Lifestyle and dietary will fications may be useful in helping modify these calcifications and reduce his cardiovascular risk. Hypercalcemia is often associated with hypomagnesemia. We should check a magnesium level as well. Copy requested to: [facility] /[id number]/ANDREL
[2016-12-06 17:43] VITALS: RESP 16
[2016-12-07 04:40] LABS: ANION GAP 9 mEq/L (8-16); CALCIUM 8.7 mg/dL (8.5-10.4); CARBON DIOXIDE 24 mEq/l (22-31); CHLORIDE 110 mEq/L (97-110); CREATININE 2.3 mg/dL (0.7-1.3); GLOMERULAR FILTRATION RATE 28; GLUCOSE 91 mg/dL (70-100); MAGNESIUM 1.7 mg/dL (1.6-2.3); POTASSIUM 3.7 mEq/L (3.5-5.2); SODIUM 143 mEq/L (134-144)
[2016-12-07] MEDS ORDERED: PROPOFOL 200 MG/20 ML VIAL ONE (10:25)
[2016-12-07] MEDS ORDERED: DEXAMETHASONE 4 MG/ML VIAL ONE (10:25)
[2016-12-07] MEDS ORDERED: fentaNYL 100 MCG/2 ML INJ ONE (10:25)
[2016-12-07] MEDS ORDERED: ROCURONIUM 50 MG/5 ML VIAL ONE (10:25)
[2016-12-07] MEDS ORDERED: LIDOCAINE 2% 100 MG/5 ML SYR ONE (10:25)
[2016-12-07] MEDS ORDERED: MIDAZOLAM 2 MG/2 ML VIAL ONE (10:29)
--- NOTE | 2016-12-07 11:17 | SUROPNOTE ---
JOSE Operative Report - Surgery EGD colon full notes dictated EGD: Eso with irreg Z line biopsied Mild gastric erythema biopsied Abnormal mucosal with narrowing and with DU biopsied Colon normal except fro hemorrhoids PLan PPI PO for 12 weeks Await path Advance diet
--- NOTE | 2016-12-07 11:44 | GPN ---
[f rep st] PROCEDURE NOTE DATE OF PROCEDURE: 12/07/2016 PROCEDURE PERFORMED: Upper endoscopy with biopsy. INSTRUMENT USED: Olympus gastroscope. MEDICINES GIVEN: Per Anesthesiology. INDICATIONS: Patient is a 66-year-old with recent pancreatitis and epigastric pain. Taking large d oses of Tums. Admitted with renal failure. Referred for upper endoscopy. Prior to procedure, exam performed including auscultation of the heart and lungs which were within normal limits. Procedure was explained, including the risks of bleeding, perforation, or effects of sedation. [facility]. FINDINGS: Patient was placed in the left lateral decubitus position. After the patient received an esthesia for sedation. The scope was inserted through the bite block and the esophagus. There was an irregular Z-line with mild inflammation to grade A at the distal esophagus. Esophagus was biopsi ed at the Z-line. There was a sliding hiatal hernia. Scope then passed in the stomach which had so me mild erythema in the antrum but no ulcers. No stigmata of bleeding. Biopsy was taken of the sto mach. Scope then passed in the duodenum. At the distal duodenum, it was quite narrowed, inflamed, abnormal-looking mucosa that was granular, somewhat heaped up, which limited the view due to the grabiel rowing which apparently appeared to be inflammatory. With careful inspection, there appeared to be a duodenal ulcer within this area but also had somewhat of a nodular look. This was biopsied. Scop e was passed through this area, not completely obstructed. No active bleeding. Scope then removed from the patient who tolerated the procedure well. Time of procedure was approximately 15 minutes. ASSESSMENT: 1. Irregular Z-line with mild erosive esophagitis. 2. Mild gastric erythema. 3. Abnormal glucose in the duodenum. Appears to be associated with a duodenal ulcer. Most likely, this is inflammatory but also has a somewhat worrisome, atypical appearance and this was biopsied. PLAN: 1. Will await biopsies. 2. Agree with PPI for at least 12 weeks. 3. Okay to advance diet. May need to consider repeat upper endoscopy as guided by past. Will proc eed with colonoscopy. Thank you for this consult. /[id number]/MODL
[2016-12-07 11:48] VITALS: PULSE 52; O2SAT 98
--- NOTE | 2016-12-07 12:15 | GPN ---
[f rep st] PROCEDURE NOTE DATE OF PROCEDURE: 12/07/2016 PROCEDURE PERFORMED: Colonoscopy. INSTRUMENT USED: Olympus video adult colonoscope. MEDICINES GIVEN: Per Anesthesiology. INDICATIONS: Patient is a 66-year-old who presented with renal failure and need for upper endoscopy . However, he has never had a screening colonoscopy and he is due, was elected to do his screening colonoscopy at the time of his upper endoscopy. He denies family history for colon cancer or colon polyps. Prior to procedure, exam performed including auscultation of the heart and lungs which were within normal limits. Patient's mental status was appropriate. Procedure was explained including the risks of bleeding, perforation, effects of sedation. He gave an informed consent. FINDINGS: Patient was placed in the left lower decubitus position. Perianal and rectal exam perfor med, remarkable for some external hemorrhoids. Instrument inserted in the rectum. Advanced by dire ct visualization to the area of the cecum, which was reached and identified by the presence of the i leocecal valve, appendiceal orifice, and the confluence of tinea. The prep was adequate for examina tion. No polyps were seen. Retroflexion revealed hemorrhoids. Scope was removed from the patient, who tolerated the procedure well. Time spent was approximately 20 minutes. ASSESSMENT: 1. Normal screening colonoscopy. 2. Minor hemorrhoids. PLAN: If hemorrhoids are symptomatic, suggest sitz baths and Anusol as needed. Repeat colonoscopy in 10 years. Plan otherwise per upper endoscopy report. Thank you for this consult. /[id number]/MODL
[2016-12-07 12:27] VITALS: BP 141/86; TEMP 97.8
--- NOTE | 2016-12-07 13:39 | GDS ---
[f rep st] DISCHARGE SUMMARY DISCHARGE DIAGNOSES: 1. 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 2. Acute kidney injury due to above. 3. Suspected duodenal ulcer. 4. Hypertension. 5. History of pancreatitis. CONSULTANTS: 1. Dr. Elisabeth Eden, [facility]. 2. Dr. Bill Padron, [facility]. HOSPITAL COURSE BY PROBLEM: 1. 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 On initial presentation, his creatini ne was 4.5, with a calcium of 14.8. Hospital day #1, his creatinine was still elevated at 4.3, with a calcium of 11.5. He then was treated with Lasix, and on 12/06/2016, dropped his creatinine to 3.2, with a calcium of 9.5. IV fluids were stopped, and on day of discharge, his creatinine has continue d to correct down to 2.3, with a calcium of 8.7. SPEP and UPEP were done. The UPEP is currently pend ing. The SPEP showed no apparent monoclonal protein spike. 2. On day of discharge, the patient states he is feeling better, and is agreeable to discharge home . I did discuss the case with Dr. Padron from [facility], who thought it was reasonable for him to discharge home later today, with further outpatient followup with them. 3. Abdominal pain: Patient underwent upper and lower endoscopy, given his history of pancreatitis a nd abdominal pain. He was found to have a duodenal ulcer, and irregular Z-line, with mild erosive es ophagitis. Biopsies were taken, which are currently pending. He may need a repeat upper endoscopy pe nding the pathology read results. PHYSICAL EXAM ON DAY OF DISCHARGE: VITAL SIGNS: Blood pressure 141/86, pulse 52, respiratory rate 1 6, O2 saturation 98% on 1 L, temperature afebrile. GENERAL: No acute distress. HEART: S1, S2. LUNGS: Clear. ABDOMEN: Soft. EXTREMITIES: No edema. PERTINENT LABS AND STUDIES: UPEP is pending, which will need to be followed up. H pylori antibody w as negative. Chest CT done 12/04/2016, showed no evidence for malignancy. There is evidence for a mi ld old T6 compression fracture, as well as 3-vessel calcified coronary artery disease. CT of the abd omen and pelvis done 12/04/2016, refer to report for full details. DISCHARGE MEDICATIONS: Please refer to discharge medication reconciliation in [facility] for full det ails, as well as the preliminary list. NEW MEDICATIONS ON HOSPITAL DISCHARGE: Norvasc 5 mg p.o. daily, pantoprazole 40 mg daily for 12 wee ks. HOME MEDICATIONS THAT WERE HELD: Lisinopril and Tums. He is also cautioned to avoid NSAIDs and aspi rin. DISCHARGE INSTRUCTIONS: The patient will be discharged from the hospital, where once again, he shou ld follow up with his primary care provider next week. He should have a repeat metabolic panel done later on this week to ensure his creatinine continues to improve. He should follow up with GI as dir ected, and Nephrology. He needs follow up of a pending urine protein electrophoresis. He should also discuss the findings of his coronary artery disease with his primary care provider. TIME SPENT: Greater than 30 minutes were spent on the discharge of this patient. /[id number]/MODL
--- NOTE | 2016-12-07 17:05 | SOAPPROG ---
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 - Stay off TUMS. - Recheck labs later this week with PCP. NAIDA: improving, likely due to hypercalcemia, which can cause dehydration as well as vasoconstriction. Cr down to 2.3, improving off IVFs. - Avoid nephrotoxins. - Will f/u in nephrology clinic after discharge. HTN: agree with staying off ACEI/ARB and continuing amlodipine for now. Subjective: No acute events overnight. Pt had colonoscopy and EGD done today. Pt hoping to go home. Objective: Vital Signs Temp Pulse Resp BP Pulse Ox 36.6 C 52 L 16 141/86 H 98 12/07/16 12:26 12/07/16 12:26 12/07/16 12:26 12/07/16 12:26 12/07/16 12:26 Laboratory Results 12/07/16 04:10 12/06/16 12/07/16 12/08/16 05:59 05:59 05:59 Intake Total 4460 2400 300 Output Total 5825 2850 0 Balance -1365 -450 300 General: alert and oriented, no acute distress Eyes; EOMI, PERRL OP: CLear CV: RRR Resp: nonlabored respirations on RA Abd: Soft, NT/ND Ext: no edema BLE Neuro: CN II-XII grossly intact, no asterixis Psych: cooperative, appropriate mood and affect ICD10 Worksheet Patient Problems: Problems Problem Status Onset Elevated serum creatinine Acute Fatigue Acute Abdominal pain Acute Elevated lipase Acute
[2016-12-07] MEDS: amLODIPine BESYLATE 5 MG TAB PO SCH (17:15)
[2016-12-07] MEDS: PANTOPRAZOLE SODIUM 40 MG TAB PO SCH (17:16)
[2016-12-08 13:50] LABS: A/G RATIO URINE 0.38; ALBUMIN URINE 28 %; ALPHA-2 GLOBULIN URINE 20 %; BETA-GLOBULIN URINE 18 %; COLLECTION DURATION PEU 24 h; CONCENTRATION PEU 4 mg/dL; GAMMA-GLOBULIN URINE 23 %; URINE VOLUME PRU 5325 mL
== END 2016-12-07 17:27 | disposition home or self-care (01) | DRG 641 ==
LOC: F1N 17:18
PROVIDERS: ADMIT Internal Medicine; ATTEND Family Medicine
PROC: 0DB68ZX Excision of Stomach, Via Natural or Artificial Opening Endoscopic, Diagnostic (ICD-10-PCS; principal; 2016-12-07 10:30)
PROC: 0DJD8ZZ Inspection of Lower Intestinal Tract, Via Natural or Artificial Opening Endoscopic (ICD-10-PCS; principal; 2016-12-07 10:30)
PROC: 0DB98ZX Excision of Duodenum, Via Natural or Artificial Opening Endoscopic, Diagnostic (ICD-10-PCS; principal; 2016-12-07 10:30)
PROC: 0DB58ZX Excision of Esophagus, Via Natural or Artificial Opening Endoscopic, Diagnostic (ICD-10-PCS; principal; 2016-12-07 10:30)
DX: E83.52 Hypercalcemia (principal); T47.1X5A Adverse effect of other antacids and anti-gastric-secretion drugs, initial encounter; N17.9 Acute kidney failure, unspecified; K26.9 Duodenal ulcer, unspecified as acute or chronic, without hemorrhage or perforation; K21.9 Gastro-esophageal reflux disease without esophagitis; I10 Essential (primary) hypertension; I25.10 Atherosclerotic heart disease of native coronary artery without angina pectoris; N20.0 Calculus of kidney
CPT/HCPCS: 82947-QW; 84156-90; 84166-90; G0103; J1100; J1940; J2001; J2250; J2704; J3010